=== PATIENT | female | born 1985 | race Caucasian/White ===

== ENCOUNTER 2023-01-11 00:34 | Emergency (ER) | payer MEDICARE, MEDICAID, SELFPAY ==
[2023-01-11 00:36] VITALS: BP 131/89; PULSE 80; RESP 16; TEMP 36.9; O2SAT 99; BMI 34.2
--- NOTE | 2023-01-11 01:42 | ED_ITS ---
HPI - Dental/Oral General Chief complaint: Dental/Oral Stated complaint: dental pain, ear pain Time Seen by Provider: 01/11/23 01:13 Source: patient Mode of arrival: ambulatory Limitations: no limitations History of Present Illness HPI Narrative: Patient with history of dental caries been having pain in right lower premolar for last 3 weeks went to urgent care center 3 days ago her prescribed Augmentin still having the pain feel cold sensation no fever no chills also have referred pain to the right ear Related Data Previous Rx's Medication Instructions Recorded tramadol 50 mg tablet 50 mg PO Q6H PRN pain #20 tabs 01/11/23 Allergies Allergy/AdvReac Type Severity Reaction Status Date / Time acetaminophen [From PERCOCET] Allergy Severe NAUSEA & Unverified 12/11/19 19:25 VOMITING oxycodone [From PERCOCET] Allergy Severe NAUSEA & Unverified 12/11/19 19:25 VOMITING celery [CELERY] Allergy Mild HIVES Unverified 12/11/19 19:25 aspirin [ASPIRIN] Allergy Unknown HIVES Unverified 12/11/19 19:25 metoclopramide [From REGLAN] Allergy Unknown ANXIETY Unverified 12/11/19 19:25 Review of Systems 2 Review of Systems: Yes all other systems are reviewed and are negative Physical Exam 2 Vital Signs: Vital Signs: Last Vital Signs Temp 98.4 F 01/11/23 00:36 Pulse 80 01/11/23 00:36 Resp 16 01/11/23 00:36 BP 131/89 01/11/23 00:36 Pulse Ox 99 01/11/23 00:36 O2 Del Method Room Air 01/11/23 00:36 BMI result Body Mass Index 34.2 HEENT: Ears: TM's normal bilaterally Face and sinus: Yes normal facial exam and Yes sinuses nontender Teeth image: 1. Carious tooth with tender percussion no gum swelling Medical Decision Making Medical Decision Making MDM Narrative: Patient with dental caries likely pulpitis discharge patient home on tramadol advised to continue Augmentin Discharge Plan Discharge Clinical Impression: Dental caries Patient Disposition: Home, Self-Care Instructions: Toothache (ED) Additional Instructions: Continue antibiotic as prescribed Pain medication as prescribed Follow-up with dentist Prescriptions: New tramadol 50 mg tablet 50 mg PO Q6H PRN (Reason: pain) Qty: 20 0RF
[2023-01-11] MEDS: Morphine Sulfate Immed Release 15 MG TABLET PO (02:10)
--- NOTE | 2023-01-11 02:15 | PC.NURSE ---
Pt ca&ox4, no signs of distress. Pt reports 8/10 left sided tooth and ear pain with an onset of 3wks ago. Pt medicated per mar. Pt reports her father is driving her home. Plan of care ongoing.
== END 2023-01-11 02:16 | disposition home or self-care (01) ==
PROVIDERS: Emergency Provider Internal Medicine
DX: K02.9 Dental caries, unspecified (principal)
CPT/HCPCS: 99283

== ENCOUNTER 2024-11-23 17:53 | Emergency (ER) | payer OTHER, SELFPAY ==
[2024-11-23 18:15] VITALS: BP 107/58; PULSE 78; RESP 18; TEMP 37; O2SAT 98; BMI 32.9
--- NOTE | 2024-11-23 18:19 | ED_ITS ---
HPI - Abdominal Pain General Chief Complaint: Abdominal Pain Stated Complaint: abd pain, nausea, headache Time Seen by Provider: 11/23/24 21:09 Source: patient Mode of arrival: ambulatory Limitations: no limitations History of Present Illness ED Provider: Dr. Zhane Oro HPI narrative: 38-year-old female with a history of GERD, gastroparesis, currently on Zepbound for weight loss stenting with epigastric abdominal pain radiating to her back ongoing for the last 4 days or so. Admits the pain started on Sunday after eating steak. Pain has been constant since it started and associated with several episodes of vomiting. She has Zofran at home for her gastroparesis and migraines which she has been taking for the nausea. Admits that it does help. Has been taking famotidine for gastritis which has not helped her pain at all. Started having some watery stools today but otherwise denies bowel changes. No known sick contacts. No one else is sick at home. No reported fever. Denies chest pain, cough or cold-type symptoms, urinary complaints. She is currently menstruating. Related Data Previous Rx's ?Medication ?Instructions ?Recorded tramadol 50 mg tablet 50 mg PO Q6H PRN pain #20 ta bs 01/11/23 dicyclomine 20 mg tablet 20 mg PO TID #10 tabs ondansetron 4 mg disintegrating 4 mg PO Q8H PRN nausea and 11/24/24 tablet vomiting #10 tabs Allergies Allergy/AdvReac Type Severity Reaction Status Date / Time acetaminophen (From PERCOCET) Allergy Severe NAUSEA & Verified 11/23/24 18:17 VOMITING oxycodone (From PERCOCET) Allergy Severe NAUSEA & Verified 11/23/24 18:17 VOMITING celery (CELERY) Allergy Mild HIVES Verified 11/23/24 18:17 aspirin (ASPIRIN) Allergy Unknown HIVES Verified 11/23/24 18:17 metoclopramide (From REGLAN) Allergy Unknown ANXIETY Verified 11/23/24 18:17 Review of Systems Review of Systems As per HPI, full review of systems performed and negative but for the above mentioned pertinent positives and negatives. [facility] Social History Social History Smoked in Last 30 Days: No Use of substances other than those prescribed or required for medical reasons: No Advance Directives: No Advance Directives Information Provided: No Patient : No Physical Exam ED Exam Exam: GENERAL: Ill-Appearing, appears uncomfortable. SKIN: Normal skin color for ethnicity, warm, dry, no rashes noted. HEENT: Normocephalic, atraumatic, no stridor, dry mucous membranes, dentition intact, EOMI, PERRLA. NECK: Soft, supple, full ROM, midline structures nontender, no step-offs, no deformities, no lymphadenopathy. CHEST: Heart regular tachycardia, no murmurs, symmetric chest rise and fall. PULMONARY: Clear to auscultation bilaterally, diminished at the bases, no labored breathing, no wheezes/rhales/rhonchi. ABDOMINAL: Soft, nondistended, epigastric tenderness to palpation without rebound or guarding, quiet bowel sounds in all quadrants. : Deferred. MUSCULOSKELETAL: Normal tone, full range of motion, no deformities, no peripheral edema. NEURO: Alert and oriented x3, CN II through XII intact, equal strength and sensation bilateral upper and lower extremities, no focal neurologic deficits. PSYCHIATRIC: Flat affect, fluid speech, good eye contact and appropriate demeanor. Vital Signs: Vital Signs - 24 hr 11/23/24 18:15 11/23/24 20:27 11/23/24 22:49 Temperature 98.6 F 97.2 F 98.5 F Pulse Rate 78 65 65 Respiratory Rate 18 16 16 Blood Pressure 107/58 L 118/71 103/53 L Pulse Oximetry 98 97 97 Oxygen Delivery Method Room Air Room Air Room Air BMI result Body Mass Index 32.9 Course Course Course Narrative: This is a Rapid Medical Examination (RME) performed by Giancarlo Brady PA-C in triage. Full HPI, ROS, assessment and treatment plan per primary provider in the Main ED. Hx: 38 yo F here w/ diffuse abd pain, vomiting x4 and watery stools x4 days. Plan: labs, UA Medical Decision Making Medical Decision Making [facility] Narrative: Patient presents today with a chief complaint of vomiting. Differential diagnosis includes surgical emergency such as obstruction or enteritis, as well as hyperglycemia, acidosis, food or drug ingestion, pancreatitis, CVA, allergic reaction such as anaphylaxis, cannabis hyperemesis syndrome or cyclic vomiting syndrome, medication side effect to Zepbound, among many others. Patient is not showing signs of acute dehydration or hemodynamic instability. They are having associated epigastric abdominal pain. Broad-based work-up was initiated based on above history and physical exam. 10:36 PM 11/23/2024 (Dr. Zhane Oro, D.O.) leukocytosis is mild with no bandemia. She has no fever and I have very low suspicion for a bacterial enteritis. This is likely demargination in the setting of vomiting. She is rather nontoxic in appearance, has normal vital signs and has been tolerating oral intake for the last several days with the assistance of Zofran. I do think that this may be related to the Zepbound she started about a month ago. There have been many instances of gastroparesis associated with this drug and she already has this diagnosis at baseline. I discussed this with her at length. We will plan on symptom control and fluids. If she is feeling improved we will consider discharge have a discussion with the provider that prescribes her Zepbound. Bedside ultrasound shows no evidence of large kidney stone or obstructive pathology. Blood work is also reassuring in that regard. Certainly no evidence of biliary obstruction on lab work. Differential Diagnosis Differential Diagnoses: The differential diagnosis associated with the presentation includes (as above) Admission/Observation Consideration of admission/observation: Escalation of care including admission/observation considered Lab Data MDM Lab Attestation statement: I reviewed the patient's lab results. 11/23/24 18:25 11/23/24 18:25 Labs: Lab Results 11/23/24 11/23/24 Range/Units 18:25 20:21 WBC 15.0 H (4.8-10.8) X10*3/uL RBC 4.20 (4.20-5.50) X10*6/uL Hgb 9.3 L (12.0-16.0) g/dl Hct 30.7 L (37.0-47.0) % MCV 73.1 L (80.0-98.0) fL MCH 22.1 L (27.0-33.0) pg MCHC 30.3 L (31.0-35.0) g/dl RDW 17.6 H (11.0-16.0) % Plt Count 476 H (160-400) X10*3/uL MPV 8.8 L (9.4-12.3) fL Immature Gran % (Auto) 0.4 (0.0-0.4) % Neut % (Auto) 82.0 H (45-73) % Lymph % (Auto) 12.7 L (20-40) % [place] % (Auto) 4.1 (2-11) % Eos % (Auto) 0.5 (0-4) % Baso % (Auto) 0.3 (0-2) % Lymph # (Auto) 1.9 (1.2-4.9) X10*3/uL [place] # (Auto) 0.6 (0.1-1.2) X10*3/uL Eos # (Auto) 0.1 (0.0-0.4) X10*3/uL Baso # (Auto) 0.1 (0.0-0.2) X10*3/uL Abs Immat Gran (auto) 0.06 H (0.00-0.03) X10*3/uL Absolute Neuts (auto) 12.3 H (2.0-8.3) x10*3/uL Absolute Nucleated RBC 0.000 (0.0-0.012) X10*3/uL Nucleated RBC % (auto) 0.0 (0.0-0.2) /100WBC Sodium 139 (135-145) mmol/L Potassium 3.7 (3.3-5.1) mmol/L Chloride 110 H (96-108) mmol/L Carbon Dioxide 19 L (22-29) mmol/L Anion Gap 14 (12-20) BUN 10 (9-16) mg/dL Creatinine 0.87 (0.5-1.4) mg/dL Estim Creat Clear Calc 77.5 Estimated GFR > 60 Random Glucose 87 (60-115) mg/dL Calcium 8.8 (8.4-10.2) mg/dL Magnesium 2.0 (1.6-2.6) mg/dL Total Bilirubin 0.3 (0.0-1.0) mg/dL AST 21 (5-31) U/L ALT 15 (0-31) U/L Alkaline Phosphatase 88 (39-117) U/L Total Protein 7.9 (6.5-8.0) g/dL Albumin 4.5 (3.5-5.0) g/dL Lipase 16 (8-78) U/L Urine Color Red A Urine Appearance Cloudy Urine pH 5.5 (5.0-9.0) Ur Specific [place] >= 1.030 H (1.005-1.025) Urine Protein 100 (2+) H (Neg-Trace) mg/dL Urine Glucose (UA) Negative (Negative) mg/dL Urine Ketones Trace (Negative) mg/dL Urine Blood Large (3+) H (Negative) Urine Nitrite Negative (Negative) Ur Leukocyte Esterase Moderate (2+) H (Negative) Urine RBC >20 H (0-2) /HPF Urine WBC 11-20 (0-5) /HPF Ur Squamous Epith Cells 0-2 (0-2) /HPF Urine Bacteria 1+ (None Seen) Hyaline Casts 11-20 (0-2) /LPF Urine Test NEGATIVE (NEGATIVE) Radiology Impression Discussion of test interpretation with radiology: I have reviewed the radiologist's reading. Prescription Management I considered prescription management with: Pain Medication Chronic Conditions Patient?s care impacted by: Other (Migraines, GERD) Medications Administered Discontinued Medications Generic Name Dose Route Start Last Admin Trade Name Nghiaq PRN Reason Stop Dose Admin Al Hydroxide/Mg Hydroxide 30 ml 11/23/24 22:27 11/23/24 23:22 Magnesium Hydrox/Alum Hydrox 30 Ml Oral.Susp PO 11/23/24 22:28 30 ml ONCE ONE Administration Dicyclomine HCl 20 mg 11/23/24 22:27 11/23/24 23:22 Dicyclomine Hcl 10 Mg Capsule PO 11/23/24 22:28 20 mg ONCE ONE Administration Lactated Ringer's 1,000 mls @ 999 mls/hr 11/23/24 22:27 11/24/24 00:37 Lr IV 11/23/24 23:27 Infused .Q1H1M ONE Infusion Lidocaine HCl 15 ml 11/23/24 22:27 11/23/24 23:22 Lidocaine Hcl Viscous 2 % 15 Ml Solution MUCOUS MEM 11/23/24 22:28 15 ml ONCE ONE Administration Ondansetron HCl 4 mg 11/23/24 22:27 11/23/24 22:43 Ondansetron Hcl 4 Mg/2 Ml Vial IVPUSH 11/23/24 22:28 4 mg ONCE ONE Administration Discharge Plan Discharge Clinical Impression: Gastritis, Nausea vomiting and diarrhea Patient Disposition: Home, Self-Care Instructions: Gastritis (ED), Diet for Stomach Ulcers and Gastritis (ED) Additional Instructions: Try to force your fluids over the next several days. Drink plenty of water and hydrating solutions such as Gatorade. Follow up with your primary care doctor regarding the medications at bound. This is likely contributing to your symptoms today. Return to the emergency department sooner with any new or worsening symptoms including: Worsening pain despite medication, inability to tolerate food or drink despite Zofran, fevers greater than 100 degrees, any new symptom that concerns you. Call 911 with any medical emergency Prescriptions: New dicyclomine 20 mg tablet 20 mg PO TID Qty: 10 0RF ondansetron 4 mg tablet,disintegrating 4 mg PO Q8H PRN (Reason: nausea and vomiting) Qty: 10 0RF No Action tramadol 50 mg tablet 50 mg PO Q6H PRN (Reason: pain) Qty: 20 0RF Print Language: Japanese
[2024-11-23 18:28] LABS: MANUAL DIFF FLAG NO
[2024-11-23 18:29] LABS: Hematocrit 30.7 % (37.0-47.0); Hemoglobin 9.3 g/dl (12.0-16.0); Imm Gran Abs Auto 0.06 X10*3/uL (0.00-0.03); Imm Gran Pct Auto 0.4 % (0.0-0.4); Lymphocytes Absolute Auto 1.9 X10*3/uL (1.2-4.9); Mean Corpuscular HGB Conc 30.3 g/dl (31.0-35.0); Mean Corpuscular Hemoglobin 22.1 pg (27.0-33.0); Mean Corpuscular Volume 73.1 fL (80.0-98.0); NRBC Abs Auto 0.000 X10*3/uL (0.0-0.012); NRBC Pct Auto 0.0 /100WBC (0.0-0.2); Platelet Count 476 X10*3/uL (160-400); Red Blood Count 4.20 X10*6/uL (4.20-5.50); White Blood Count 15.0 X10*3/uL (4.8-10.8)
[2024-11-23 18:46] LABS: Alanine Aminotransferase 15 U/L (0-31); Albumin Level 4.5 g/dL (3.5-5.0); Alkaline Phosphatase 88 U/L (39-117); Anion Gap 14 (12-20); Aspartate Amino Transferase 21 U/L (5-31); Blood Urea Nitrogen 10 mg/dL (9-16); Calcium 8.8 mg/dL (8.4-10.2); Carbon Dioxide 19 mmol/L (22-29); Chloride 110 mmol/L (96-108); Creatinine Clr Calc Pharmacy 77.5; Estimated Glomerular Filt Rate > 60; Lipase 16 U/L (8-78); Magnesium 2.0 mg/dL (1.6-2.6); Potassium 3.7 mmol/L (3.3-5.1); Sodium 139 mmol/L (135-145); Total Protein 7.9 g/dL (6.5-8.0)
[2024-11-23 20:27] VITALS: BP 118/71; PULSE 65; RESP 16; TEMP 36.2; O2SAT 97
[2024-11-23 20:33] LABS: UPreg QC Valid YES
[2024-11-23 20:36] LABS: Appearance Urine Cloudy; Glucose Urine UA Negative (Negative); PH 5.5 (5.0-9.0); Specific Gravity - Urine >= 1.030 (1.005-1.025); UMIC TRIGGER UACC YES
--- OUTSIDE RECORDS SUMMARY | 2024-11-23 20:44 | XMS_ITS | Clinical Summary ---
Author Organization [facility] Address [address] [place] [address] Phone Care Team Providers Care Cold Meat Chef Name Role Phone Carolyn Loving MD Primary Care Provider [phone] Allergies Active Allergy Reactions Criticality Noted Date Comments Celery Hives 04/02/2024 Oxycodone Nausea And Vomiting 04/02/2024 Metoclopramide Hcl Anxiety 04/02/2024 Medications No known medications Active Problems No known active problems Surgical History Surgery Date Site/Laterality Comments OTHER SURGICAL HISTORY PROCEDURE: DENIES PREVIOUS SURGERY Medical History Medical History Date Comments Urinary tract infection, sit e not specified 02/21/2005 DX:Urinary tract infection, site not specified Undiagnosed cardiac murmurs 02/21/2005 DX:U ndiagnosed cardiac murmurs Unspecified asthma(493.90) 02/21/2005 DX:Un specified asthma(493.90) Family History Medical History Relation Name Comments Asthma Brother 1 Diabetes Mother also on dialysi s Asthma Sister 1 Relation Name Status Comments Brother 1 Brother 2 Alive Brother 3 Alive Daughter Alive eczema Father Alive High cholestero l Mother Alive DM Sister 1 Sister 2 Alive asthma Social History Tobacco Use Types Packs/Day Years Used Date Smoking Tobacco: Never Alcohol Use Standard Drinks/Week Comments No 0 (1 standard drink = 0.6 oz pur e alcohol) Comments Unknown Sex and Gender Information Value Date Recorded Sex Assigned at Not on file Legal Sex Female 4:57 AM EST Gender Identity Not on file Sexual Orientation Not on file Obstetrics History Last Filed Vital Signs Vital Sign Reading Time Taken Comments Blood Pressure 114/65 04/02/2024 11:03 AM EST Pulse 73 04/02/2024 11:03 AM EST Temperature 36.7 C (98.1 F) 04/02/2024 11:03 AM EST Respiratory Rate 18 04/02/2024 11:03 AM EST Oxygen Saturation 98% 04/02/2024 11:03 AM EST Inhaled Oxygen Concentration - - Weight 72.6 kg (160 lb) 04/02/2024 11:03 AM EST Height 124.5 cm (4' 1 ) 04/02/2024 11:03 AM EST Body Mass Index 46.85 04/02/2024 11:03 AM EST Plan of Treatment Health Maintenance Due Date Last Done Comments Diabetes: Annual Foot Exam 1996 Diabetes: Annual Retina Eye Exam 1996 Hepatitis B Vaccines (1 of 3 - 19+ 3-dose series) 2005 Pneumococcal Vaccine: Pediatrics (0 to 5 Years) and At-Risk Patients (6 to 49 Years) (1 of 2 - PCV) 2005 Cervical Cancer Screening: Pap Smear 12/13/2007 Cholesterol Screening (Lipid Panel) 02/26/2022 HIV Screening 02/26/2022 Hepatitis C Screening 02/26/2022 Medicare Annual Wellness Visit 02/26/2022 Social Influencers of Health Screening 02/26/2022 COVID-19 Vaccine ( season) 2023 Depression Screening 03/26/2024 Diabetes: Annual Urine Albumin-Creatinine Ratio (uACR) 04/02/2024 Diabetes: Blood Sugar Control Test (HGBA1C) 04/02/2024 03/27/2023 Influenza Vaccine (#1) 2024 , 12/17/2019, 02/06/2019, Additional history exists Diabetes: Annual GFR (Glomerular Filtration Rate) 04/02/2025 04/02/2024 DTaP,Tdap,and Td Vaccines (4 - Td or Tdap) 03/05/2028 03/05/2018, 07/03/2014, 09/15/2009 MMR Vaccines Aged Out 05/17/2018 No longer eligi ble based on patient's age to complete this topic HIB Vaccines Aged Out No longer eligi ble based on patient's age to complete this topic HPV Vaccines Aged Out No longer eligi ble based on patient's age to complete this topic Hepatitis A Vaccines Aged Out No long er eligible based on patient's age to complete this topic IPV Vaccines Aged Out No longer eligi ble based on patient's age to complete this topic Meningococcal ACWY Vaccine Aged Out N o longer eligible based on patient's age to complete this topic Meningococcal B Vaccine Aged Out No l onger eligible based on patient's age to complete this topic RSV Immunization Patients Under 20 months Aged Out No longer eligible based on patient's age to complete this topic Varicella Vaccines Aged Out No longer eligible based on patient's age to complete this topic Procedures Procedure Name Priority Date/Time Associated Diagnosis Comments COMPREHENSIVE METABOLIC PANEL STAT 04/02/2024 11:11 AM EST from Last 3 Months or Most Recently Relevant to Health Maintenance Results * Comprehensive metabolic panel (04/02/2024 11:11 AM EST) Sodium 138 133 - 145 mmol/L LAB CHEMISTRY METHOD 04/02/2024 12:[address] [facility] Potassium 3.5 3.5 - 5.5 mmol/L LAB CHEMISTRY METHOD 04/02/2024 12:[address] [facility] Chloride 108 96 - 110 mmol/L LAB CHEMISTRY METHOD 04/02/2024 12:[address] [facility] CO2 26 21 - 32 mmol/L LAB CHEMISTRY METHOD 04/02/2024 12:[address] [facility] Anion Gap 4 3 - 11 LAB CHEMISTRY METHOD 04/02/2024 12:[address] [facility] Glucose 77 70 - 100 mg/dL LAB CHEMISTRY METHOD 04/02/2024 12:[address] [facility] BUN 9 5 - 25 mg/dL LAB CHEMISTRY METHOD 04/02/2024 12:[address] [facility] Creatinine 0.70 0.50 - 1.10 mg/dL LAB CHEMISTRY METHOD 04/02/2024 12:[address] [facility] eGFR 114 >=60 mL/min/1. 73m2 LAB CHEMISTRY METHOD 04/02/2024 12:[address] [facility] Comment:Calculation based on the Chronic Kidney Disease Epidemiology Collaboration (CKD-EPI) equation refit without adjustment for race. BUN/Creatinine Ratio 12.9 LAB CHEMISTRY METHOD 04/02/2024 12:[address] [facility] Calcium 8.7 8.5 - 10.5 mg/dL LAB CHEMISTRY METHOD 04/02/2024 12:[address] [facility] AST (SGOT) 10 10 - 42 unit/L LAB CHEMISTRY METHOD 04/02/2024 12:[address] [facility] ALT (SGPT) 19 10 - 60 unit/L LAB CHEMISTRY METHOD 04/02/2024 12:[address] [facility] Alkaline Phosphatase 87 42 - 121 unit/L LAB CHEMISTRY METHOD 04/02/2024 12:[address] [facility] Total Protein 7.2 6.0 - 8.0 g/dL LAB CHEMISTRY METHOD 04/02/2024 12:[address] [facility] Albumin 3.3 3.2 - 5.0 g/dL LAB CHEMISTRY METHOD 04/02/2024 12:[address] [facility] Total Bilirubin 0.2 0.0 - 1.4 mg/dL LAB CHEMISTRY METHOD 04/02/2024 12:[address] [facility] Blood Venous blood specimen / Unknown Venipuncture / Unknown 04/02/2024 11:11 AM EST 04/02/2024 11:56 AM EST us Uche Nguyen MD LAB BLOOD ORDERABLES Final Resu lt [facility] [address] [place] [address], from Last 3 Months or Most Recently Relevant to Health Maintenance Insurance MEDICARE MEDICAID - [place] Care Teams Cold Meat Chef Relationship Specialty Start Date End Date Carolyn Loving MD [address] [place] [address] PCP - General 08/18/15
--- OUTSIDE RECORDS SUMMARY | 2024-11-23 20:44 | XMS_ITS | Encounter Summary ---
Author Organization [employer] Address [address] [facility] [address] [place] [address] Care Team Providers Care Extractor Operator Name Role Phone Myesha Monte DO Primary Care Provider [phone] Encounter Details Date Type Department Care Team (Late st Contact Info) Description 01/09/2024 Orders Only [facility] [address] [place] [address] Myesha Monte DO [address] [place] [address] Social History Tobacco Use Types Packs/Day Years Used Date Smoking Tobacco: Never Passive Smoke Exposure: Never Smokeless Tobacco: Never Alcohol Use Standard Drinks/Week Comments Never 0 (1 standard drink = 0.6 oz pur e alcohol) Alcohol Answer Date Recorded How often do you have a drink containing alcohol ? 0 04/18/2023 How many drinks containing a lcohol do you have on a typical day when you are drinking? 0 04/18/2023 How often do you have six or more drinks on one occasion? 0 04/18/2023 Depression Answer Date Recorded Patient Health Questionnaire-9 Score 14 01/07/2024 Patient Health Questionnaire-9 Score 14 01/07/2024 Last PHQ-9: Questionnaire Data Not on file 1 Housing Stability Answer Date Recorded What is your housing situation today? I have heide bianchi 01/09/[address] you li ve. Do you have problems with any of the following? None of the above 01/09/2023 Food Insecurity Answer Date Recorded Within the past 12 months, y ou worried that your food would run out before you got money to buy more: Never True 04/18/2023 Within the past 12 months,th e food you bought just didn't last and you didn't have enough money to get more: Never True Transportation Answer Date Recorded In the past 12 months, has l ack of transportation kept you from medical appts, meetings, work or from getting things needed for daily living? No 04/18/2023 Intimate Partner Violence Answer Date R ecorded Within the last year, have y ou been afraid of your partner or ex-partner? 2 04/18/2023 Within the last year, have y ou been humiliated or emotionally abused in other ways by your partner or ex-partner? 2 Within the last year, have y ou been kicked, hit, slapped, or otherwise physically hurt by your partner or ex-partner? 2 04/18/2023 Within the last year, have y ou been raped or forced to have any kind of sexual activity by your partner or ex-partner? 2 04/18/2023 Utilities Answer Date Recorded In the past 12 months, has t he electric, gas, oil or water company threatened to shut off services in your home? No 01/09/2023 Depression Answer Date Recorded Patient Health Questionnaire-2 Score 6 01/07/2024 Education Answer Date Recorded What is the highest level of school you have completed or the highest degree you have received? 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 Not on file Not on file documented as of this encounter Plan of Treatment Not on file documented as of this encounter Procedures Procedure Name Priority Date/Time Associated Diagnosis Comments CBC Routine 12/03/2023 10:39 AM EDT documented in this encounter Results * CBC (12/03/2023 10:39 AM EDT) Blood Venous blood specimen / Unknown us Myesha Lavell DO LAB BLOOD ORDERABLES Final Res ult documented in this encounter Visit Diagnoses Not on filedocumented in this encounter Additional Health Concerns Assessment Noted Time PHQ-9 Depression Total Score: 14 024 4:36 PM EDT documented as of this encounter Care Teams Extractor Operator Relationship Specialty Start Date End Date Myesha Monte DO [address] [place] [id number] PCP - General Family Medicine 12/20/23 C3 CM [facility] C[facility] Community [facility] Worker Case Management 01/19/23 documented as of this encounter
--- OUTSIDE RECORDS SUMMARY | 2024-11-23 20:44 | XMS_ITS | Clinical Summary ---
Author Organization [facility] Address [facility] [employer] [address] [address] Phone Care Team Providers Care Industrial Engineering Intern Name Role Phone Rosalva Schaffer ELECTRONIC SCIENCE TEACHER Primary Care Provider [phone] Unknown, Unknown MD Unavailable Unavailable Allergies Active Allergy Reactions Criticality Noted Date Comments Aspirin Hives 05/18/2018 Celery 05/18/2018 Codeine GI Upset 05/18/2018 Onion 05/18/2018 Promethazine 05/18/2018 Metoclopramide Hcl 05/18/2018 Medications acetaminophen (TYLENOL) 325 mg tablet Take 3 tablets (975 mg total) by mouth every 6 (six) hours as needed for mild pain (fever greater than 38.4 degrees C). 60 tablet 9 Active oxyCODONE 5 MG immediate release tablet Take 1 tablet (5 mg total) by mouth every 4 (four) hours as needed for moderate pain. Partial fill ok 10 tablet 9 Active docusate sodium (COLACE) 100 MG capsule Take 1 capsule (100 mg total) by mouth 2 (two) times a day. 30 capsule 9 Active Additional Information Patient not taking.Reported on 06/01/2018 polyethylene glycol (MIRALAX) 17 gram packet Take 17 g by mouth daily. 15 each 9 Active fluticasone-kristy meterol (ADVAIR HFA) 45-21 mcg/actuation inhaler Inhale 2 puffs into the lungs. Active albuterol 90 mcg/actuation inhaler Inhale 2 puffs into the lungs 2 (two) times a day. Active acetaminophen (TYLENOL) 325 mg tablet Take 3 tablets (975 mg total) by mouth every 6 (six) hours as needed for mild pain. 30 tablet 1 9 Active ibuprofen (ADVIL,MOTRIN) 600 MG tablet Take 1 tablet (600 mg total) by mouth every 6 (six) hours as needed. 60 tablet 1 9 Active Active Problems Problem Noted Date Diagnosed Date care and examination immediately afte r delivery 05/20/2018 Social History Tobacco Use Types Packs/Day Years Used Date Smoking Tobacco: Never Smokeless Tobacco: Never Education Answer Date Recorded Are you interested in more education? Not on mary ann e 01/12/2023 Are you concerned about learning? Not on file 01/12/2023 No 01/12/2023 No 01/12/2023 Digital Access Answer Date Recorded No 01/12/2023 No 01/12/2023 Reliable internet access at home? Not on file 01/12/2023 Device with a working camera? Not on file Comments No Sex and Gender Information Value Date Recorded Sex Assigned at Female 01/12/2023 11:56 AM EDT Legal Sex Female 11:53 AM EDT Gender Identity Female 01/12/2023 11:56 AM EDT Sexual Orientation Straight 01/12/2023 11 :56 AM EDT Last Filed Vital Signs Vital Sign Reading Time Taken Comments Blood Pressure 119/60 06/01/2018 11:12 PM EST Pulse 86 06/01/2018 11:12 PM EST Temperature 36.9 C (98.4 F) 06/01/2018 11:12 PM EST Respiratory Rate 18 06/01/2018 11:12 PM EST Oxygen Saturation 99% 06/01/2018 10:33 PM EST Inhaled Oxygen Concentration - - Weight 65.8 kg (145 lb) 06/01/2018 10:33 PM EST Height 149.9 cm (4' 11 ) 06/01/2018 10:33 PM EST Body Mass Index 29.29 06/01/2018 10:33 PM EST Plan of Treatment Health Maintenance Due Date Last Done Comments DEPRESSION SCREENING 1998 HEPATITIS C SCREENING 2004 HIV ONE-TIME SCREENING (18-6 5 YEARS) 2004 PAP SMEAR 12/13/2007 COVID-19 VACCINE (2023-2 5 season) 2023 Adult Td,Tdap Booster 03/05/2028 03/05/2018 , 09/15/2009 SMOKING STATUS SCREENING (On ce After 26 Yrs) Completed 06/01/2018 HEPATITIS A VACCINES Aged Out No long er eligible based on patient's age to complete this topic HIB VACCINES Aged Out No longer eligi ble based on patient's age to complete this topic MENINGOCOCCAL VACCINES (ACWY) Aged Out No longer eligible based on patient's age to complete this topic MENINGOCOCCAL VACCINES (B) Aged Out N o longer eligible based on patient's age to complete this topic PNEUMOCOCCAL VACCINES (0-49 years) Aged Out No longer eligible b ased on patient's age to complete this topic Medical Devices Not on file Insurance MEDICARE PART A & B [facility] MEDICARE PART A & [place] [facility] [place] A & B [employer] PART A & [employer] PART A & [place] & [place] & [place] [employer] PART A & [place] PART A & [facility] & [place] [facility] DENTAL Advance Directives For more information, please contact: [phone] (9AM - 5PM [facility], Sunday-Sunday) * Full Code (Presumed) (Latest Code Status on File) Date Activated Date Inactivated Comments 05/17/2018 4:26 PM 05/20/2018 2:25 PM Care Teams Industrial Engineering Intern Relationship Specialty Start Date End Date Rosalva Schaffer NP PCP - General Nurse Practitioner 01/12/23 Unknown, Unknown, 01/12/23 Additional Source Comments The information contained in this document represents components of the legal health record. It is not the complete legal health record.[facility]
--- OUTSIDE RECORDS SUMMARY | 2024-11-23 20:44 | XMS_ITS | Clinical Summary ---
Author Organization [employer] Address [address] [place] [address] 7 [place] [address] Care Team Providers Care Business Rules Developer Name Role Phone Myesha Monte DO Primary Care Provider Allergies Active Allergy Reactions Criticality Noted Date Comments Acetaminophen-Codeine 06/28/2022 Other reaction(s): Vomiting Aspirin 03/09/2022 Other reaction(s): Unknown Celery Oil 03/09/2022 Codeine 06/28/2022 Influenza A (H1n1) Monovalent Vaccine Shortness of breath,Headache High 03/09/2022 Onion Hives 03/09/2022 Promethazine Anxiety Low 06/28/2022 Metoclopramide Shortness of breath,Anxiety High 03/09/2022 Medications escitalopram (Lexapro) 10 MG tablet TAKE 1 TABLET BY MOUTH EVERY DAY for 90 Active fluticasone (Flonase) 50 MCG/ACT nasal spray 1 SPRAY IN EACH NOSTRIL NASALLY ONCE A DAY 15 DAY(S) 12/27/19 14 Active hydrOXYzine HCl (Atarax) 25 MG tablet TAKE 1 TABLET BY MOUTH TWICE A DAY for 90 Active ibuprofen 800 MG tablet 1 tablet every 8 (eight) hours if needed. 10/01/19 20 Active LORazepam (Ativan) 0.5 MG tablet TAKE 1 TABLET BY MOUTH EVERY 8 HOURS NEEDED FOR 3 DAYS 10/27/19 22 Active SUMAtriptan (Imitrex) 25 MG tablet twice a day. Active topiramate (Topamax) 100 MG tablet 1 tablet in the morning and 1 tablet in the evening. Active Nebulizer miscIndications:M oderate persistent asthma with exacerbation 1 Units if needed in the morning, at noon, in the evening, and at bedtime (SOB). 1 each 03/15/20 22 Active Spacer/Aero-Holdi ng Chambers deviceIndications :Moderate persistent asthma with exacerbation 1 Units every 6 (six) hours if needed (SOB). 1 Units 03/15/20 22 Active Blood Glucose Monitoring Suppl (FreeStyle [place] Lite) w/Device kitIndications:Ty pe 2 diabetes mellitus with hyperglycemia, without long-term current use of insulin ([facility]) USE DIRECTED TO CHECK BLOOD SUGAR DAILY 1 kit 09/06/19 23 Active L norgest/e.estradi ol-e.estrad (Seasonique) 0.15-0.03 &0.01 MG tablet tablet Take 1 tablet by mouth in the morning. 91 tablet 3 11/11/19 23 Active Continuous Blood Gluc Sensor (FreeStyle [place] 3 Sensor) [facility] [place] TO MONITOR BLOOD SUGAR AND CHANGE EVERY 14 DAYS 07/28/19 23 Active cetirizine (ZyrTEC) 10 MG tabletIndications :Unspecified asthma, uncomplicated TAKE 1 TABLET BY MOUTH EVERY DAY NEEDED 90 tablet 12/12/19 23 Active clindamycin (Cleocin) 300 MG capsule 01/16/20 23 Active gabapentin (Neurontin) 100 MG capsuleIndication s:Pain due to dental caries Take 2 capsules (200 mg) by mouth 3 times daily for 5 days. 30 capsule 03/15/20 23 Active albuterol (2.5 MG/3ML) 0.083% nebulizer solutionIndicatio ns:Moderate persistent asthma with exacerbation Take 3 mL by nebulization every 4 (four) hours if needed for wheezing. 75 mL 2 03/21/20 23 Active Respiratory Therapy Supplies (Nebulizer Mask Adult) miscIndications:M oderate persistent asthma with exacerbation 1 Units if needed in the morning, at noon, in the evening, and at bedtime (SOB). 1 each 03/21/20 23 Active omeprazole (PriLOSEC) [address] capsuleIndication s:Gastroesophagea l reflux disease, unspecified whether esophagitis present TAKE 1 CAPSULE BY MOUTH BEFORE BREAKFAST AND EVENING MEAL 180 capsule 09/24/19 24 Active Additional Information Patient not taking.Reported on 01/07/2024 Balziva 0.4-35 MG-MCG tablet TAKE 1 TABLET BY MOUTH EVERY DAY (TAKE 21 DAY ACTIVE TABLETS THEN SKIP PLACEBOS & START NEXT PACK) Active naproxen (Naprosyn) 500 MG tablet TAKE 1 TABLET BY MOUTH 2 TIMES A DAY CAN TAKE UP TO 10 DAYS OR UNTIL BLEEDING STOPS. TAKE WITH FOOD 06/15/19 24 Active famotidine (Pepcid) 20 MG tabletIndications :Gastroesophageal reflux disease, unspecified whether esophagitis present TAKE 1 TABLET BY MOUTH TWICE A DAY 180 tablet 1 11/21/19 24 Active FreeStyle lancetsIndication s:Type 2 diabetes mellitus with hyperglycemia, without long-term current use of insulin (CMS/HCC) 1 each by Other route 3 times daily. 100 each 1 12/11/19 24 Active Alcohol Swabs (Alcohol Prep) 70 % padsIndications:T ype 2 diabetes mellitus with hyperglycemia, without long-term current use of insulin (CMS/HCC) USE DIRECTED TO CHECK BLOOD SUGARS TWICE DAILY 100 each 12/11/19 24 Active polyethylene glycol, PEG, 3350 (Glycolax) 17 GM/SCOOP powder Take 238 g by mouth Once per day. 12/03/19 24 Active Wheat Dextrin (Benefiber On The GO) powder Take 4 mg by mouth 3 times daily. 12/03/19 24 Active metFORMIN (Glucophage) 500 MG tabletIndications :Type 2 diabetes mellitus with hyperglycemia, without long-term current use of insulin (CMS/HCC) Take 1 tablet (500 mg) by mouth with breakfast and with evening meal. 180 tablet 2 03/27/19 25 025 Active albuterol 108 (90 Base) MCG/ACT inhalerIndication s:Moderate persistent asthma with exacerbation Inhale 2 puffs every 4 (four) hours if needed for wheezing. 18 g 03/30/19 25 Active Symbicort 160-4.5 MCG/ACT inhalerIndication s:Moderate persistent asthma with exacerbation Inhale 2 puffs 2 times daily. 1 each 03/30/19 25 Active glucose blood (FREESTYLE LITE) test stripIndications: Type 2 diabetes mellitus with hyperglycemia, without long-term current use of insulin (CMS/HCC) as directed In Vitro check daily for 30 days 100 each 03/30/19 25 Active Active Problems Problem Noted Date Diagnosed Date Paresthesia of both lower extremities 04/19/2023 Overview (04/19/2023): Both feet, difficulty describing symptoms - feels like feet are going to twist and lift up . PE exam benign. Hx FLO - recent iron levels normal. Hx T2DM - A1c in 5% range for over a year, unlikely DM related neuropathy. Etiology unclear - will get EMG. Tinea pedis of both feet 04/19/2023 Overview (04/19/2023): Fungal infection between toes. Discussed foot care - keeping clean and dry. After showering, dry between toes. Use anti-fungal cream. Change socks twice daily, go barefoot as often as possible when at home. Toenail fungus 04/19/2023 Overview (04/19/2023): Recent LFTs normal. Discussed treatment options - would like to start Terbinafine. Aware needs CMP monthly while on medication. Reviewed medication, administration, and potential side effects. Chronic pain of both knees 04/19/2023 Overview (04/19/2023): Ongoing x 4-5 months, no known injury/trauma. Legs hurt in any position, but knees hurt mostly when playing on the floor with her kids/cleaning. Discussed options - will refer to PT. Obesity (BMI 30.0-34.9) 04/19/2023 Overview (04/19/2023): Diet and exercise counseling done 04/18/23. Assessment & Plan (04/19/2023 10:09 AM EST): I suggest a balanced diet of fruits, vegetables, whole grains, lean proteins, and healthy fats while limiting processed foods, added sugars, and unhealthy fats. Small, consistent changes can reduce chronic disease risks. Track your meals with a food diary, be mindful of portion sizes, and address barriers to healthy eating. Engage in both aerobic and strength exercises, aiming for 150 minutes of moderate- intensity activity weekly, with two strength-training sessions. Choose enjoyable workouts and integrate physical activities like taking stairs into your day-to-day life. Encounter for counseling regarding contraception 03/15/2023 Overview (03/15/2023): Discussed hormonal control with hx of migraine with aura. Advised of increased risk of blood clots, and potential adverse outcomes and S/S to watch for. Discussed when to go to ER. Has PRESS SUPERVISOR appointment in a few weeks. Is currently sexually active - pt prefers to stay on this medication until speaking with PRESS SUPERVISOR. Pain due to dental caries 01/16/2023 Overview (03/15/2023): Dentist - Javi Rebolled[facility] on [address]. Has wisdom tooth that needs to be removed, appointment not until June with oral surgeon - Rubio Schilling. Taking Gabapentin twice daily. Assessment & Plan (01/16/2023 3:40 PM EDT): Increase gabapentin today, discussed will need to taper this medication on discontinuation. Please follow up in person at appointment tomorrow with PCP for reeval and next steps in pain management. Go to ed for any new/worsening symptoms ie- worsening pain/swelling/fevers. Encounter for Papanicolaou s mear for cervical cancer screening 12/06/2022 Overview (12/06/2022): PAP done 12.06.22 Discussed PAP smear, procedure overall and at each step prior to it being done. Magazine Publisher present in exam room. Shown all equipment and given time to ask questions prior to start. Advised can be uncomfortable, but if painful at any time to let this provider know. Advised if needing a break or would like to stop at any time to let this provider know. Exam done, with consent, as above. Copious thick discharge from cervical os - will send Vaginitis swab. Will follow up with results when available. Constipation 08/03/2022 Assessment & Plan (08/03/2022 12:00 PM EDT): Discussed treatment options - encouraged to increase fiber and water intake. Will start Colace - reviewed medication, administration, and potential side effects. Gastritis due to Helicobacter species 07/19/2022 Overview (07/19/2022): H Heillmanni Heart murmur 07/19/2022 Iron deficiency anemia 07/19/2022 Assessment & Plan (07/19/2022 11:00 AM EDT): Ongoing microcytic, hypochromic anemia. Will do follow up labs. Therapeutic drug monitoring 07/19/2022 Assessment & Plan (07/19/2022 11:01 AM EDT): Will start terbinefine - baseline LFTs WNL. Will repeat in 1 month. Nausea 07/19/2022 Abdominal pain 03/09/2022 Overview (08/31/2022): On Prilosec 40mg BID and Zantac. Engaged with [facility] - Dr. Zhao. Assessment & Plan (08/31/2022 8:10 AM EDT): Continues to have GERD symptoms and abdominal pain. States she is working with GI to get an appointment. Dysmenorrhea 03/09/2022 Overview (04/23/2023): 04/18 PRESS SUPERVISOR: start with TSH and pelvic US. Endometriosis vs. Dysmenorrhea vs. Fibroid vs. Adenomyosis. Pending results consider contraception. RTC for US results and PAP. Allergic rhinitis 03/09/2022 Severe sleep apnea 03/09/2022 Flexural eczema 03/09/2022 Assessment & Plan (08/03/2022 11:58 AM EDT): Abdominal skin lesion likely related to eczema. Advised to use Triamcinolone cream. GERD (gastroesophageal reflux disease) Overview (12/06/2022): On superintendent container terminal high dose PPI and H2 diomedes. Symptoms worsening. Will refer to GI for further evaluation. Insomnia 03/09/2022 Mixed anxiety depressive disorder 03/09/2022 Refractory migraine 03/09/2022 Overview (12/06/2022): Hx of migraine with aura. Advised not to take estrogen containing control due to increased risk of stroke. Will discuss alternate control options. Type 2 diabetes mellitus wit h hyperglycemia, without long-term current use of insulin 03/09/2022 Overview (04/19/2023): Was having high fasting blood sugars (around 200) with normal A1c, + symptomatic hyperglycemia. Diagnosed with T2DM 04/2021. Stopped Trulicity at last visit - has been doing well. Decreasing Metformin due to low blood sugars. Lab Results Component Value Date HGBA1C 5.4 03/27/2023 Assessment & Plan (08/31/2022 8:25 AM EDT): Having low blood sugars and symptomatic hypoglycemia. Advised to hold Trulicity for now, will check labs to determine need for medication adjustment. Will have labs done today. Assessment & Plan (07/19/2022 10:22 AM EDT): Notes blood glucose has been dropping to around 44 at night. Taking metformin and Trulicity. Advised to take Metformin 500mg 2 tabs in AM, and 1 tab in PM. Will follow up at appointment next week. Moderate persistent asthma without complication 03/09/2022 Overview (03/15/2023): Trialed Advair and Flovent in the past - was not helpful. Had side effects with Singulair. On Symbicort. Needing Albuterol 2x/week. Has been trying to avoid illness. Not engaged with Pulmonology. Assessment & Plan (08/31/2022 8:13 AM EDT): Taking Symbicort 2 puffs BID. Has been needing Albuterol 2x/day, triggered by the weather. Will continue to monitor and discuss step up treatment. Resolved Problems Problem Noted Date Diagnosed Date Resolved Date Epigastric pain 12/06/2022 04/19/2023 Cellulitis of left upper extremity 07/19/2022 08/31/2022 Assessment & Plan (08/03/2022 11:56 AM EDT): Improved. One day left of Bactrim. Advised to keep clean and notify clinic if S/S worsen in any way. Assessment & Plan (07/19/2022 11:00 AM EDT): Seen at [facility] on 07/09, Dx Cellulitis. Rx Keflex QID. Has missed multiple doses, finger improved and is now worsening. Discussed treatment options - will change antibiotic to simpler regimen. Will change to Bactrim - pt less than 70kg, will do 1 DS tab BID x 7 days. Reviewed medication, administration, and potential side effects. Take all medication until pills are gone. Reviewed when to call clinic, when to go to ER. Immunizations Immunization Administration Dates Next Due INFLUENZA INJECTABLE QUADRIV ALANT CCIIV4 MDCK Multi-dose vial 02/06/2019 Influenza, IIV3, injectable 05/12/2021,0 12/17/2019,02/08/2018,2015,01/20/2015,01/02/2014,01/07/2013,1 Influenza, Split (incl. alec fied surface antigen) 01/15/2012 MMR 05/17/2018 Novel [id number], preservative-free 05/06/2009 Tdap 03/05/2018,07/03/2014,09/15/2009 Family History Medical History Relation Name Comments Asthma Brother 1 No Known Problems Brother 2 sarcoma Daughter 1 At Hyperlipidemia Father Diabetes Mother retinopathy Endometriosis Mother Fibromyalgia Mother Heart disease Mother Hypertension Mother Sleep apnea Mother liver enlargement Mother respiratory arrest Mother Age 51 - uterine fibroids Mother Endometriosis Sister Relation Name Status Comments Brother 1 Alive Brother 2 Alive Daughter 1 Alive Daughter 2 Alive Father Alive Mother Sister Alive Social History Tobacco Use Types Packs/Day Years Used Date Smoking Tobacco: Never Passive Smoke Exposure: Never Smokeless Tobacco: Never Tobacco Cessation:Counseling Given: Not Answered Alcohol Use Standard Drinks/Week Comments Never 0 [...] file Not on file Not on file Last Filed Vital Signs Vital Sign Reading Time Taken Comments Blood Pressure 117/79 01/07/2024 4:18 PM EDT Pulse 92 01/07/2024 4:18 PM EDT Temperature 36.5 C (97.7 F) 01/07/2024 4:18 PM EDT Respiratory Rate 16 09/24/2023 10:02 AM EDT Oxygen Saturation 98% 01/07/2024 4:18 PM EDT Inhaled Oxygen Concentration - - Weight 75.4 kg (166 lb 4.8 oz) 01/07/2024 4:18 P M EDT Height 149.9 cm (4' 11 ) 01/07/2024 4:18 PM EDT Body Mass Index 33.59 01/07/2024 4:18 PM EDT Plan of Treatment Health Maintenance Due Date Last Done Comments HIV Screening 1985 Lipid Panel 1986 Disability Screening 1986 Eye Exam 1996 Alcohol/Substance Use Screening 1998 Family Planning (PISQ) 2001 HPV Vaccines (1 - 3-dose series) 2001 Hepatitis C Screening 2004 Hepatitis B Vaccines (1 of 3 - 19+ 3-dose series) 2005 Pneumococcal Vaccine: Pediatrics (0 to 5 Years) and At-Risk Patients (6 to 49) Years (1 of 2 - PCV) 2005 Diabetes: Urine Protein Screening 09/01/2023 08/31/2022 Diabetes: Hemoglobin A1C 09/25/2023 024, 08/31/2022, 05/06/2021, Additional history exists COVID-19 Vaccine ( season) 2023 SDOH Screening 01/20/2024 01/19/2023 Diabetes: Foot Exam 04/18/2024 04/18/2023, 04/18/2023, 04/18/2023, Additional history exists Depression Monitoring 07/07/2024 01/07/2024, 024 Influenza Vaccine (#1) 2024 , 12/17/2019, 02/06/2019, Additional history exists Tobacco Screening 01/06/2025 01/07/2024 Pap Smear 12/06/2025 12/06/2022, 11/13/2017 Cervical Cancer Screening 12/07/2027 HPV/Cotest 12/07/2027 12/06/2022 DTaP/Tdap/Td Vaccines (4 - Td or Tdap) 03/05/2028 03/05/2018, 07/03/2014, 09/15/2009 Zoster Vaccines (1 of 2) 2036 RSV Patients and Patients Aged 60 years or older (1 - 1-dose 75+ series) 2061 HIB Vaccines Aged Out No longer eligi [...] patient's age to complete this topic Meningococcal Vaccine Aged Out No manuela rossi eligible based on patient's age to complete this topic RSV under 20 months Aged Out No longe r eligible based on patient's age to complete this topic Rotavirus Vaccines Aged Out No longer eligible based on patient's age to complete this topic Procedures Procedure Name Priority Date/Time Associated Diagnosis Comments HEMOGLOBIN A1C Routine 03/27/2023 10:05 AM EST Type 2 diabetes mellitus with hyperglycemia, without long-term current use of insulin ([facility]) PAP, LB WITH CT/GC AND HPV Routine 12/06/2022 9:46 AM EDT MICROALBUMIN, RANDOM (W CREAT) Routine 08/31/2022 10:30 AM EDT from Last 3 Months or Most Recently Relevant to Health Maintenance Results * Hemoglobin A1c (03/27/2023 10:05 AM EST) Hemoglobin A1C 5.4 (4.0-5.6) % [facility] Comment: MONITORING: In known diabetic patients, hemoglobin A1c targets should be discussed with health care provider. DIAGNOSTIC USE: The [place] Diabetes Association (ADA) and the World Health Organization (WHO) recommend the use of HbA1c to diagnose diabetes using a threshold of 6.5%. Patients who have an HbA1c between 5.7% and 6.4% are considered at increased risk for developing diabetes in the future. CAUTION: Falsely low HbA1c results may be observed in patients with hemolytic anemia, homozygous forms of abnormal hemoglobin (e.g. SS, CC, SC), , recent blood loss or hemoglobin F greater than 7%. Fructosamine may be used as an alternate test in these cases. REFERENCE: ADA: Standards of Medical Care in Diabetes 2020, The Journal of Clinical and Applied Research and Education Volume 43, Supplement 1 Testing performed or reported by [facility], a Service of [facility], [address] [place] [address] Pravin Paul MD, Carpet Sewer [facility]# [id number] Blood Venous blood specimen / Unknown 03/27/2023 10:05 AM EST 03/27/2023 10:14 AM EST Rosalva Schaffer [facility] LAB BLOOD ORDERABLES Final Resul t [address] [address] * PAP, LB with CT/GC and HPV (12/06/2022 9:46 AM EDT) PAP, LB WITH CT/GC AND HPV Patient Name: NIRAV ELLIOTT [facility] Comment: Patient : 1985 (Age: 36) Lab Collection Date: 12/06/2022 Accession Date: 12/08/2022 Sign Out Date: 12/15/2022 Tissue Source: 1: THINPREP PRESS SUPERVISOR PAP TEST, CERVICAL: Final Diagnosis: NEGATIVE FOR INTRAEPITHELIAL LESION OR MALIGNANCY. Satisfactory for evaluation. Endocervical/transformation zone present. Scant squamous cellularity present. Clinical History: Date of Last Menstrual Period: not available Menstrual History: not available Contraceptive History: not available Ancillary Testing: HPV (ASCUS) Case imaged by the ThinPrep Imaging System with manual rescreening or review. Performed at [facility] department of Cytology, Marilyn Parrish [facility] Clinical History (other): z12.4, routine screen Phone #: [phone], On-Call Pathologist: [id number] Testing performed or reported by [facility], a Service of [facility], [address] [place] [id number] Pravin Paul MD, Carpet Sewer CLIA# [id number] 12/06/2022 9:46 AM EDT 12/08/2022 9:47 AM EDT us Carolyn Loving MD LAB CYTOLOGY ORDERABLES Final Re sult Performing Organization Address [facility] de Phone Number [facility] [address] [place] [id number] * Microalbumin, Random Urine w/Creatinine (08/31/2022 10:30 AM EDT) Micro-Albumin <12.0 (<20) MG/L [facility] Comment: The urine microalbumin test is designed to monitor renal function. When screening for Bence Rodriguez proteinuria, urine electrophoresis is recommended. Malb/Creat Ratio Unable to calculate (0-20) MG/GM [facility] Urine Creat For Micro Albumin 163.2 MG/DL [facility] Comment: Testing performed or reported by [facility], a Service of [facility], [address] [place] [id number] Pravin Paul MD, Carpet Sewer [facility]# [id number] 08/31/2022 10:3 0 AM EDT 08/31/2022 3:19 PM EDT us Rosalva MAY LAB URINE ORDERABLES Final Resul t Performing Organization Address [facility] de Phone Number [facility] [address] [place] [phone] from Last 3 Months or Most Recently Relevant to Health Maintenance Insurance MEDICARE [facility] STANDARD Care Teams Business Rules Developer Relationship Specialty Start Date End Date Myesha Monte DO [address] [place] [address] PCP - General Family Medicine 12/20/23 C3 CELINA Swenson Community Health Worker Case Management 01/19/23
--- OUTSIDE RECORDS SUMMARY | 2024-11-23 20:44 | XMS_ITS | Encounter Summary ---
Author Organization [employer] Address [address] [place] [address] [place] [address] Care Team Providers Care Learning And Development Associate Name Role Phone Rosalva SchafferP Primary Care Provider [phone] Myesha Monte DO Primary Care Provider [phone] Reason for Visit * Reason Comments Med Refill Encounter Details Date Type Department Care Team (Late st Contact Info) Description 08/22/2023 Refill [place] [facility] [address] [place] [address] Carolyn Loving MD [address] [place] [address] Social History Tobacco Use Types Packs/Day Years [...] more drinks on one occasion? 0 04/18/2023 Housing Stability Answer Date Recorded What is [...] Answer Date Recorded Patient Health Questionnaire-2 Score 0 12/06/2022 Comments Unknown Sex and Gender Information Value Date Recorded Sex Assigned at Female 03/17/2022 1:57 PM EST Legal Sex Female 8:36 PM EDT Gender Identity Female 03/17/2022 1:57 PM EST Sexual Orientation Straight 03/15/2023 11 :40 AM EST documented as of this encounter Plan of Treatment Not on file documented as of this encounter Visit Diagnoses Not on filedocumented in this encounter Care Teams Learning And Development Associate Relationship Specialty Start Date End Date Rosalva Schaffer FNP [address] [place] [address] PCP - General Family Medicine 06/12/22 12/19/23 Myesha Monte DO [address] [place] [address] PCP - General Family Medicine 12/20/23 C3 CM CATEW Candy Swenson Community Health Worker Case Management 01/19/23 documented as of this encounter
--- OUTSIDE RECORDS SUMMARY | 2024-11-23 20:44 | XMS_ITS | Encounter Summary ---
Author Organization [employer] Address [address] [place] [address] 7 [place] [address] Care Team Providers Care Head Of Measurement & Insights Name Role Phone Rosalva Schaffer Primary Care Provider [phone] Myesha Monte DO Primary Care Provider [phone] Encounter Details Date Type Department Care Team (Late st Contact Info) Description 07/20/2023 Orders Only [place] [facility] [address] [place] [address] Rosalva Schaffer FNP [address] [place] [address] Paresthesia of both lower extremities Social History Tobacco Use Types Packs/Day Years [...] Procedure Name Priority Date/Time Associated Diagnosis Comments EMG Routine 07/18/2023 Paresthesia of both lower extremities documented in this encounter Results * EMG (07/18/2023) Rosalva MAY NEUROLOGY ORDERABLES Final Resul t documented in this encounter Visit Diagnoses Diagnosis Paresthesia of both lower extremities documented in this encounter Care Teams Head Of Measurement & Insights Relationship Specialty Start Date End Date Rosalva Schaffer FNP [address] [place] [address] [place] [address] PCP - General Family Medicine 06/12/22 12/19/23 Myesha Monte DO [address] [place] [address] PCP - General Family Medicine 12/20/23 C3 CM CHW Candy Swenson Community Health Worker Case Management 01/19/23 documented as of this encounter
[2024-11-23 20:48] LABS: UACC Culture Trigger YES
[2024-11-23] MEDS: Lactated Ringers 1,000 ML 999 ML IV (22:43)
--- NOTE | 2024-11-23 22:48 | PC.NURSE ---
20g iv placed in R ac pt tolerated well. pt medicated with iv zofran and ivf
[2024-11-23 22:49] VITALS: BP 103/53; PULSE 65; RESP 16; TEMP 36.9; O2SAT 97
[2024-11-23] MEDS: Lidocaine HCl Viscous 2 % 15 ML SOLUTION MUCOUS MEM (23:22)
[2024-11-23] MEDS: Magnesium Hydrox/Alum Hydrox 30 ML ORAL.SUSP PO (23:22)
[2024-11-24 01:00] VITALS: BP 103/53; PULSE 65; RESP 16; TEMP 36.9; O2SAT 97
== END 2024-11-24 01:00 | disposition home or self-care (01) ==
PROVIDERS: Physician Assistant Medical; Emergency Provider Emergency Medicine; PCP Nurse Practitioner Family
DX: K29.70 Gastritis, unspecified, without bleeding (principal); R10.2 Pelvic and perineal pain; R11.2 Nausea with vomiting, unspecified; R51.9 Headache, unspecified; R19.7 Diarrhea, unspecified; Z79.85 Long-term (current) use of injectable non-insulin antidiabetic drugs; Z79.899 Other long term (current) drug therapy
CPT/HCPCS: 36415; 80053; 81001; 81025; 83690; 83735; 85025; 87086; 96361; 96374; 99284; J2405; J7120

== ENCOUNTER → 2024-12-30 15:20 | Outpatient (BNV) | payer OTHER, SELFPAY | PROVIDERS: PCP Nurse Practitioner Family; Referring Provider Nurse Practitioner Family; Visit Provider Internal Medicine | DX: D50.0 Iron deficiency anemia secondary to blood loss (chronic) (principal); N92.0 Excessive and frequent menstruation with regular cycle | CPT/HCPCS: 99204 ==

== ENCOUNTER 2025-02-21 02:32 | Emergency (ER) | payer OTHER, SELFPAY ==
[2025-02-21 02:53] VITALS: BP 109/65; PULSE 69; RESP 16; TEMP 36.4; O2SAT 98; BMI 31.6
--- NOTE | 2025-02-21 03:11 | ED_ITS ---
HPI - Extremity Problem General Chief complaint: Extremity Problem Stated complaint: Left Hand Injury Time Seen by Provider: 02/21/25 02:52 Source: patient Mode of arrival: ambulatory Limitations: no limitations History of Present Illness ED Provider: Dr. Isabelle Majano HPI Narrative: Patient comes to the emergency room complaining of 2 weeks of right wrist pain without any trauma. Patient states that it has gradually been getting worse. Patient states that she has numbness in the wrist radiating upwards in the forearm. Patient complaining of tingling, patient states that she has trouble squeezing objects in her right hand because it makes the pain/tingling worse. Patient states it is worse in the morning Related Data Previous Rx's ?Medication ?Instructions ?Recorded tramadol 50 mg tablet 50 mg PO Q6H PRN pain #20 ta bs 01/11/23 dicyclomine 20 mg tablet 20 mg PO TID #10 tabs ondansetron 4 mg disintegrating 4 mg PO Q8H PRN nausea and 01/22/25 tablet vomiting #10 tabs Allergies Allergy/AdvReac Type Severity Reaction Status Date / Time acetaminophen (From PERCOCET) Allergy Severe NAUSEA & Verified 02/21/25 02:55 VOMITING oxycodone (From PERCOCET) Allergy Severe NAUSEA & Verified 02/21/25 02:55 VOMITING celery (CELERY) Allergy Mild HIVES Verified 02/21/25 02:55 aspirin (ASPIRIN) Allergy Unknown HIVES Verified 02/21/25 02:55 metoclopramide (From REGLAN) Allergy Unknown ANXIETY Verified 02/21/25 02:55 Review of Systems Review of Systems: Constitutional : No Weight loss, No Fever, No Chills, No Night Sweats, No Fatigue, No Malaise ENT/Mouth : No Hearing loss, No Ear Pain, No Nasal Congestion, No Sinus Pain, No Hoarseness, No sore throat, No Rhinorrhea, No Swallowing Difficulty Eyes: No Eye Pain, No Swelling, No Redness, No Foreign Body, No Discharge, No Vision Changes Cardiovascular : No Chest Pain, No SOB, No Dyspnea on Exertion, No Orthopnea, No Edema, No Palpitations Respiratory : No Cough, No Sputum, No Wheezing, No Smoke Exposure, No Dyspnea Gastrointestinal : No Nausea, No Vomiting, No Diarrhea, No Constipation, No abdominal Pain, No Hematochezia, No Melena Genitourinary : no irregular bleeding, No Dysuria, No Urinary Frequency, No Hematuria, No Urinary Incontinence, No Urgency, No Flank Pain, No Urinary Flow Changes, No Hesitancy Musculoskeletal : complaining of numbness and tingling in the right hand, trouble squeezing objects with the hand, pain radiating up the forearm. No Myalgias, No Joint Swelling Skin : No Skin Lesions, No rash Neuro : No Weakness, No Numbness, No Paresthesias, No Loss of Consciousness, No Dizziness, No Headache Psych : No Anxiety/Panic, No Depression, No SI/HI/AH/VH, No Social Issues, Heme/Lymph: No Bruising, No Bleeding,No Lymphadenopathy Endocrine : No Polyuria, No Polydipsia, No Temperature Intolerance [facility] Past Medical History Medical History Fibroid Migraine Asthma GERD (gastroesophageal reflux disease) Family History Family History (Updated 12/30/24 @ 15:58 by Janice Cheatham) Daughter Sarcoma of back Maternal Grandmother Liver cancer Social History Social History (Updated 12/30/24 @ 16:01 by Janice Cheatham) Household Members: Children Housing: Apartment Are you a primary acute care surgeon to a significant other at home: Yes Do you presently have visiting nurse or other home services: No Patient Tobacco Use Status: Never used Tobacco Advance Directives: No Advance Directives Information Provided: Yes service: No Current occupational status: employed Physical Exam 2 Exam: Exam: Appearance: Alert. Oriented X3. No acute distress. Eyes: Pupils equal, round and reactive to light. ENT: Pharynx normal. Neck: Normal inspection. Neck supple. No lymph nodes noted. No crepitus CVS: Normal heart rate and rhythm. Pulses normal. Normal S1 and S2 Respiratory: No respiratory distress. Breath sounds normal. No Wheezing. No rales Abdomen: Soft and nontender. No rigidity. No distention. Skin: Skin warm and dry. Normal skin color. Normal skin turgor. Extremities: No lower extremity edema. No Lacerations. No Rash . In the wrist, there is no obvious inflammation, no ecchymosis no cellulitis. Patient has normal flexion and extension. However, patient did have positive Tinel's sign and Phalen's test Neuro: Oriented X 3. No motor deficit. No sensory deficit. Moving all extremities. No slurred speech. CN 2 through 12 grossly intact Psych: calm, cooperative, normal affect Vital Signs: Vital Signs: Last Vital Signs Temp 97.5 F 02/21/25 02:53 Pulse 69 02/21/25 02:53 Resp 16 02/21/25 02:53 BP 109/65 02/21/25 02:53 Pulse Ox 98 02/21/25 02:53 O2 Del Method Room Air 02/21/25 02:53 BMI result Body Mass Index 31.6 Medical Decision Making Medical Decision Making [facility] Narrative: I discussed the physical exam with the patient, patient had positive Tinel's sign and positive Phalen's test. I discussed with the patient that most likely she has carpal tunnel syndrome. Patient states that she has a very sensitive stomach and can not take acetaminophen because it consciousness nausea vomiting, oxycodone because it causes nausea vomiting, and can not take NSAIDs because it causes her to have GI bleed. given the above-mentioned, it is submitted what medications we can not give to the patient. Also, patient states that she already takes gabapentin for her chronic neuropathy and it is not working patient was provided with a wrist splint. Patient needs to have close follow-up with the primary care physician. Eventually, if this does not provide relief, patient may be a good candidate for other studies such as electromyography or MRI Differential Diagnosis Differential Diagnoses: The differential diagnosis associated with the presentation includes ( neuropathy, paresthesias, carpal tunnel syndrome) Discharge Plan Discharge Clinical Impression: Carpal tunnel syndrome Patient Disposition: Home, Self-Care Instructions: Carpal Tunnel Syndrome (DC) Additional Instructions: Please follow-up with your primary care physician tomorrow. your eventually may need steroid injections versus physical therapy. In severe cases, surgery may be needed. If you have any worsening or new symptoms, please return to the emergency room or call 911 Prescriptions: No Action dicyclomine 20 mg tablet 20 mg PO TID Qty: 10 0RF tramadol 50 mg tablet 50 mg PO Q6H PRN (Reason: pain) Qty: 20 0RF ondansetron 4 mg tablet,disintegrating 4 mg PO Q8H PRN (Reason: nausea and vomiting) Qty: 10 0RF Print Language: Kiswahili
--- OUTSIDE RECORDS SUMMARY | 2025-02-21 03:14 | XMS_ITS | Encounter Summary ---
Author Organization [employer] Address [address] [facility] 7 [place] [address] Care Team Providers Care Firer Automatic Stoker Name Role Phone Myesha Monte DO Primary Care Provider [phone] Inactive/Transferred Primary Care Provider Unava ilable Encounter Details Date Type Department Care Team (Late st Contact Info) Description 01/09/2024 Orders Only [facility] Information Management [address] [place] [address] Myesha Monte DO [address] [place] [address] Social History Tobacco Use Types Packs/Day Years [...] blood specimen / Unknown us Myesha Lavell LAB BLOOD ORDERABLES Final Res ult documented in this encounter Visit Diagnoses Not on filedocumented in this encounter Additional Health Concerns Assessment Noted Time PHQ-9 Depression Total Score: 14 024 4:36 PM EDT documented as of this encounter Care Teams Firer Automatic Stoker Relationship Specialty Start Date End Date Lavell Myesha [address] [place] [address] PCP - General Family Medicine 12/20/23 11/27/24 Inactive/Transferred PCP - General 11/28/24 11/28/24 C3 CM CHW Candy Swenson Community Health Worker Case Management 01/19/23 documented as of this encounter
--- OUTSIDE RECORDS SUMMARY | 2025-02-21 03:14 | XMS_ITS | Clinical Summary ---
Author Organization [facility] Address [address] [place] [address] Phone Care Team Providers Care Undercutter Operator Name Role Phone Carolyn Loving MD Primary Care Provider [phone] Allergies Active Allergy Reactions Criticality Noted Date [...] 2005 Cervical Cancer Screening: Pap Smear 12/13/2007 HPV Vaccines (1 - 3-dose SCDM series) 2013 Cholesterol Screening (Lipid Panel) 02/26/2022 HIV Screening 02/26/2022 Hepatitis C Screening 02/26/2022 Medicare Annual Wellness Visit 02/26/2022 Social Influencers of Health Screening 02/26/2022 Depression Screening 03/26/2024 Diabetes: Annual Urine Albumin-Creatinine Ratio (uACR) 04/02/2024 Diabetes: Blood Sugar Control Test (HGBA1C) 04/02/2024 03/27/2023 COVID-19 Vaccine ( season) 2024 Influenza Vaccine (#1) 2024 2, 12/17/2019, 02/06/2019, Additional history exists Diabetes: Annual GFR (Glomerular Filtration Rate) 04/02/2025 04/02/2024 DTaP,Tdap,and Td Vaccines (4 - Td or Tdap) 03/05/2028 03/05/2018, 07/03/2014, 09/15/2009 RSV Immunization Adult Patients (1 - 1-dose 75+ series) 2061 MMR Vaccines Aged Out 05/17/2018 No longer [...] MD LAB BLOOD ORDERABLES Final Resu lt [facility] [address] [place] [address], from Last 3 Months or Most Recently Relevant to Health Maintenance Insurance MEDICARE MEDICAID - [place] Care Teams Undercutter Operator Relationship Specialty Start Date End Date Carolyn Loving MD [address] [place] [id number] PCP - General 08/18/15
--- OUTSIDE RECORDS SUMMARY | 2025-02-21 03:14 | XMS_ITS | Encounter Summary ---
Author Organization [employer] Address [address] [place] [address] 7 [place] [address] Care Team Providers Care Clinical Data Research Name Role Phone Rosalva Schaffer NP Primary Care Provider Myesha Bill DO Primary Care Provider [phone] Inactive/Transferred Primary Care Provider Mata winters Encounter Details Date Type Department Care Team (Late st Contact Info) Description 07/20/2023 Orders Only [facility] MEDICAL [address] [place] [address] Rosalva Schaffer NP Paresthesia of both lower extremities Social History [...] this encounter Results * EMG (07/18/2023) Rosalva Schaffer NP NEUROLOGY ORDERABLES Final Resul t documented in this encounter Visit Diagnoses Diagnosis Paresthesia of both lower extremities documented in this encounter Care Teams Clinical Data Research Relationship Specialty Start Date End Date Rosalva Schaffer NP PCP - General Family Medicine 06/12/22 12/19/23 Myesha Monte DO [address] [place] [id number] PCP - General Family Medicine 12/20/23 11/27/24 Inactive/Transferred PCP - General 11/28/24 11/28/24 C3 CM CHW Candy Swenson Community Health Worker Case Management 01/19/23 documented as of this encounter
--- OUTSIDE RECORDS SUMMARY | 2025-02-21 03:14 | XMS_ITS | Encounter Summary ---
Author Organization [employer] Address [address] [place] [address] [place] [address] Care Team Providers Care Manager Code Name Role Phone SarbjitRosalva ALFONSO Primary Care Provider Myesha Bill DO Primary Care Provider [phone] Inactive/Transferred Primary Care Provider Unava ilable Reason for Visit * Reason Comments Med Refill Encounter Details Date Type Department Care Team (Late st Contact Info) Description 08/22/2023 Refill [facility] MEDICAL [address] [place] [address] Carolyn Loving MD [address] [place] [address] Social History Tobacco Use Types Packs/Day Years [...] on filedocumented in this encounter Care Teams Manager Code Relationship Specialty Start Date End Date Rosalva Schaffer NP PCP - General Family Medicine 06/12/22 12/19/23 Myesha Monte DO [address] [place] [address] PCP - General Family Medicine 12/20/23 11/27/24 Inactive/Transferred PCP - General 11/28/24 11/28/24 C3 CM CATEW Candy Swenson Community Health Worker Case Management 01/19/23 documented as of this encounter
--- OUTSIDE RECORDS SUMMARY | 2025-02-21 03:14 | XMS_ITS | Encounter Summary ---
Author Organization [employer] Address [address] [facility] 7 [place] [address] Care Team Providers Care Emergency Department Aide Name Role Phone Myesha Monte DO Primary Care Provider [phone] Inactive/Transferred Primary Care Provider Unava ilable Encounter Details Date Type Department Care Team (Late st Contact Info) Description 11/27/2024 Telephone [facility] Information Management [address] [place] [address] Myesha Monte DO [address] [place] [address] Social History Tobacco Use Types Packs/Day Years [...] the past 12 months, has t he [employer] gas, oil or water company threatened to [...] on file documented as of this encounter Miscellaneous Notes * Telephone Encounter - Beba Wadsworth RN - 11/27/2024 3:56 PM EDT [facility] Please deactivate patient record and close encounter. TY Call to patient to discuss recent admission/hospitalization and offer office visit. Date of hospitalization: 11/23/24 Discharge date: 11/23/24 Hospital: [facility] Records on file: yes Discharge diagnosis: Gastritis; N/V/Diarrhea Patient described events as: abdominal pain; N?V; Headache Lingering concerns/symptoms for provider: Medication changes: Dicyclomine 20 mg TID Ondansetron Disintegrating tablet 4 mg Q 8 hrs prn Tramadol 50 mg Q 6 hrs prn Follow-up scheduled: Patient states she transferred her primary care to [facility]. Advised she call that office for f/u appt. Counseled on reasons for urgent evaluation while awaiting office visit documented in this encounter Plan of Treatment Not on file documented as of this encounter Visit Diagnoses Not on filedocumented in this encounter Additional Health Concerns Assessment Noted Time PHQ-9 Depression Total Score: 14 024 4:36 PM EDT documented as of this encounter Care Teams Emergency Department Aide Relationship Specialty Start Date End Date Myesha Monte DO [address] [place] [address] PCP - General Family Medicine 12/20/23 11/27/24 Inactive/Transferred PCP - General 11/28/24 11/28/24 C3 CM CARLEEN Swenson Community Health Worker Case Management 01/19/23 documented as of this encounter
--- OUTSIDE RECORDS SUMMARY | 2025-02-21 03:14 | XMS_ITS | Clinical Summary ---
Author Organization [employer] [facility] Address [facility] [address] [address] Phone Care Team Providers Care Chiropractic Teacher Name Role Phone Rosalva Schaffer FISCAL MANAGER Primary Care Provider [phone] Unknown, Unknown MD Unavailable Unavailable Allergies Active [...] HEPATITIS C SCREENING 2004 HIV ONE-TIME SCREENING (18-65 YEARS) 2004 PAP SMEAR 12/13/2007 INFLUENZA VACCINE (#1) 2024 0, 02/06/2019, 05/06/2009, Additional history exists COVID-19 VACCINE (2024- season) 2024 Adult Td,Tdap Booster 03/05/2028 03/05/2018, 010 SMOKING STATUS SCREENING (Once After 26 Yrs) Completed 06/01/2018 HEPATITIS A [...] (0-49 years) Aged Out No longer eligible based on patient's age to complete this topic Medical Devices Not on file Insurance MEDICARE PART A & B [facility] [address] MEDICARE PART A & [place] & B [employer] MEDICARE PART A & [place] & [place] & [place] A & [facility] [address] DENTAL Advance Directives For more information, please contact: [phone] (9AM - 5PM [facility], Sunday-Sunday) * Full Code (Presumed) (Latest Code Status on File) Date Activated Date Inactivated Comments 05/17/2018 4:26 PM 05/20/2018 2:25 PM Care Teams Chiropractic Teacher Relationship Specialty Start Date End Date Rosalva Schaffer NP PCP - General Nurse Practitioner 01/12/23 Unknown, Unknown, 01/12/23 Additional Source Comments The information contained in this document represents components of the legal health record. It is not the complete legal health record.[facility]
--- OUTSIDE RECORDS SUMMARY | 2025-02-21 03:14 | XMS_ITS | Clinical Summary ---
Author Organization [employer] Address [address] [place] [address] 7 [place] [address] Care Team Providers Care Finishing Trimmer Name Role Phone Unavailable Primary Care Provider Unavailabl e Allergies Active Allergy Reactions Criticality Noted Date [...] 22 Active Blood Glucose Monitoring Suppl (FreeStyle [place] Lite) w/Device kitIndications:Ty pe 2 diabetes mellitus with hyperglycemia, without long-term current use of insulin (HCC) USE DIRECTED TO CHECK BLOOD SUGAR DAILY 1 kit 09/06/19 23 Active L norgest/e.estradi ol-e.estrad (Seasonique) 0.15-0.03 &0.01 MG tablet tablet Take 1 tablet by mouth in the morning. 91 tablet 3 11/11/19 23 Active Continuous Blood Gluc Sensor (FreeStyle [place] 3 Sensor) [facility] USE TO MONITOR BLOOD SUGAR AND CHANGE [...] hyperglycemia, without long-term current use of insulin (HCC) 1 each by Other route 3 times daily. 100 each 12/11/19 24 Active Alcohol Swabs (Alcohol Prep) 70 % padsIndications:T ype 2 diabetes mellitus with hyperglycemia, without long-term current use of insulin ([facility]) USE DIRECTED TO CHECK BLOOD SUGARS TWICE [...] hyperglycemia, without long-term current use of insulin ([facility]) Take 1 tablet (500 mg) by mouth with breakfast and with evening meal. 180 tablet 2 03/27/19 25 Active albuterol 108 (90 Base) MCG/ACT inhalerIndication s:Moderate persistent asthma with exacerbation Inhale 2 puffs every 4 (four) hours if needed for wheezing. 18 g 1 03/30/19 25 Active Symbicort 160-4.5 MCG/ACT inhalerIndication s:Moderate persistent asthma with exacerbation Inhale 2 puffs 2 times daily. 1 each 03/30/19 25 Active glucose blood (FREESTYLE LITE) test stripIndications: Type 2 diabetes mellitus with hyperglycemia, without long-term current use of insulin ([facility]) as directed In Vitro check daily for [...] Discussed when to go to ER. Has [facility] [facility] appointment in a few weeks. Is currently sexually active - pt prefers to stay on this medication until speaking with [facility]. Pain due to dental caries 01/16/2023 Overview (03/15/2023): Dentist - Javi Rebolledo on [address]. Has wisdom tooth that needs to be [...] each step prior to it being done. Check Writer present in exam room. Shown all equipment [...] to Helicobacter species 07/19/2022 Overview (07/19/2022): H Hemeena Heart murmur 07/19/2022 Iron deficiency anemia 07/19/2022 Assessment & Plan (07/19/2022 11:00 AM EDT): Ongoing microcytic, hypochromic anemia. Will do follow up labs. Therapeutic drug monitoring 07/19/2022 Assessment & Plan (07/19/2022 11:01 AM EDT): Will start terbinefine - baseline LFTs WNL. Will repeat in 1 month. Nausea 07/19/2022 Abdominal pain 03/09/2022 Overview (08/31/2022): On Prilosec 40mg BID and Zantac. Engaged with [facility] - Dr. Zhao. Assessment & Plan (08/31/2022 8:10 AM EDT): Continues to have GERD symptoms and abdominal pain. States she is working with GI to get an appointment. Dysmenorrhea 03/09/2022 Overview (04/23/2023): 04/18 [address] [facility]: start with TSH and pelvic US. Endometriosis vs. Dysmenorrhea vs. Fibroid vs. Adenomyosis. Pending results consider contraception. RTC for US results and PAP. Allergic rhinitis 03/09/2022 Severe sleep apnea 03/09/2022 Flexural eczema 03/09/2022 Assessment & Plan (08/03/2022 11:58 AM EDT): Abdominal skin lesion likely related to eczema. Advised to use Triamcinolone cream. GERD (gastroesophageal reflux disease) Overview (12/06/2022): On media manager high dose PPI and H2 diomedes. Symptoms [...] Plan (07/19/2022 11:00 AM EDT): Seen at [facility] on 07/09, Dx Cellulitis. Rx Keflex [...] call clinic, when to go to ER. Encounters Date Type Department Care Team Description 11/27/2024 Telephone [facility] Information Management [address] [place] [address] Myesha Monte DO from Last 3 Months Immunizations Immunization Administration Dates Next Due INFLUENZA INJECTABLE QUADRIV ALANT CCIIV4 MDCK Multi-dose vial 02/06/2019 Influenza, IIV3, injectable 05/12/2021,0 12/17/2019,02/08/2018,2015,01/20/2015,01/02/2014,01/07/2013,1 Influenza, Split (incl. alec fied surface antigen) 01/15/2012 MMR 05/17/2018 Novel [id number], preservative-free 05/06/2009 Tdap 03/05/2018,07/03/2014,09/15/2009 Family History Medical [...] PCV) 2005 Diabetes: Urine Protein Screening 09/01/2023 08/31/2022, 08/31/2022 Diabetes: Hemoglobin A1C 09/25/2023 024, 08/31/2022, 05/06/2021, Additional history exists SDOH Screening 01/20/2024 01/19/2023 Diabetes: Foot Exam 04/18/2024 04/18/2023, 04/18/2023, 04/18/2023, Additional history exists Depression Monitoring 07/07/2024 01/07/2024, 024 COVID-19 Vaccine ( season) 2024 Influenza Vaccine (#1) 2024 2, 12/17/2019, 02/06/2019, Additional history exists Tobacco Screening [...] hyperglycemia, without long-term current use of insulin ([facility]) PAP, LB WITH CT/GC AND HPV Routine 12/06/2022 9:46 AM EDT MICROALBUMIN, RANDOM (W CREAT) Routine 08/31/2022 10:30 AM EDT from Last 3 Months or Most Recently Relevant to Health Maintenance Results * Hemoglobin A1c (03/27/2023 10:05 AM EST) Hemoglobin A1C 5.4 (4.0-5.6) % [facility] Comment: MONITORING: In known diabetic patients, hemoglobin A1c targets should be discussed with health care provider. DIAGNOSTIC USE: The [place] [employer] (ADA) and the World Health [...] Supplement 1 Testing performed or reported by [facility], a Service of [facility], [address] [place] [id number] Pravin Paul MD, Vessel Scrapper [facility]# [id number] Blood Venous blood specimen / Unknown 03/27/2023 10:05 AM EST 03/27/2023 10:14 AM EST Rosalva Schaffer NP LAB BLOOD ORDERABLES Final Resul t [facility] [address] [place] [phone] * PAP, LB with CT/GC and HPV (12/06/2022 9:46 AM EDT) PAP, LB WITH CT/GC AND HPV Patient Name: NIRAV ELLIOTT [facility] Comment: Patient : 1985 (Age: 36) Lab Collection Date: 12/06/2022 Accession Date: 12/08/2022 Sign Out Date: 12/15/2022 Tissue Source: 1: THINPREP [facility] PAP TEST, CERVICAL: Final Diagnosis: NEGATIVE FOR INTRAEPITHELIAL LESION OR MALIGNANCY. Satisfactory for evaluation. Endocervical/transformation zone present. Scant squamous cellularity present. Clinical History: Date of Last Menstrual Period: not available Menstrual History: not available Contraceptive History: not available Ancillary Testing: HPV (ASCUS) Case imaged by the ThinPrep Imaging System with manual rescreening or review. Performed at [facility] department of Cytology, Pratik Ortiz MA Clinical History (other): z12.4, routine screen Phone #: [phone], On-Call Pathologist: [id number] Testing performed or reported by [facility], a Service of [facility], [address] [place] [id number] Pravin Paul MD, Vessel Scrapper [facility]# [id number] 12/06/2022 9:46 AM EDT 12/08/2022 9:47 AM EDT Carolyn Loving MD LAB CYTOLOGY ORDERABLES Final Re sult Performing Organization Address [facility] Co de Phone Number [facility] [address] [place] [phone] * Microalbumin, Random Urine w/Creatinine (08/31/2022 10:30 AM EDT) Micro-Albumin <12.0 (<20) MG/L [facility] Comment: The urine microalbumin test is designed to monitor renal function. When screening for Bence Rodriguez proteinuria, urine electrophoresis is recommended. Malb/Creat Ratio Unable to calculate (0-20) MG/GM [facility] Urine Creat For Micro Albumin 163.2 MG/DL [facility] Comment: Testing performed or reported by [facility], a Service of [facility], [address] [place] [phone] Pravin Paul MD, Vessel Scrapper [facility]# [id number] 08/31/2022 10:3 0 AM EDT 08/31/2022 3:19 PM EDT Rosalva Schaffer NP LAB URINE ORDERABLES Final Resul t Performing Organization Address [facility] de Phone Number [facility] [address] [place] [phone] from Last 3 Months or Most Recently Relevant to Health Maintenance Insurance MEDICARE [facility] Care Teams Finishing Trimmer Relationship Specialty Start Date End Date C3 CM CARLEEN Swenson Community Health Worker Case Management 01/19/23
[2025-02-21 04:47] VITALS: BP 109/65; PULSE 69; RESP 16; TEMP 36.4; O2SAT 98
== END 2025-02-21 03:50 | disposition home or self-care (01) ==
PROVIDERS: Emergency Provider Emergency Medicine; PCP Nurse Practitioner Family
DX: G56.01 Carpal tunnel syndrome, right upper limb (principal); R20.2 Paresthesia of skin; M25.531 Pain in right wrist
CPT/HCPCS: 99282